=== PATIENT | female | born 1995 ===

== ENCOUNTER 2018-04-17 13:58 | Emergency (ER) | payer BC ==
[2018-04-17 14:10] VITALS: BP 122/67
--- NOTE | 2018-04-17 14:13 | UC ---
UC General HPI - HPI Summary HPI Summary: 23 yo female presents with fatigue and feeling cold extremities over the last few weeks. She tells me that she is studying for her MCATs and is under a lot of stress recently. Over the last 2 weeks she has noticed her hands and feet will feel cold, even though it is warm outside. Also has felt more tired and fatigued. She is sleeping well at night. Is eating and drinking as usual. Denies fever, SOB, chest pain, abdominal pain, n/v/d/c, dysuria, vaginal pain/ discharge, dizziness, or headache. No recent illness, weight loss/gain, or night sweats. No pain. She tells me that her mother is hypothyroid and is wonders if she has it as well. - History of Current Complaint Chief Complaint: UCGeneralIllness Stated Complaint: FATGIUE,CHILLS Time Seen by Provider: 04/17/18 14:08 Hx Obtained From: Patient Onset/Duration: Gradual Onset Current Severity: None - Allergy/Home Medications Allergies/Adverse Reactions: Allergies Allergy/AdvReac Type Severity Reaction Status Date / Time amoxicillin Allergy GI Upset Verified 04/17/18 14:10 Home Medications: Home Medications Desogestrel-Ethinyl Estradiol [Juleber 0.15-30 mg-Mcg] 1 tab PO 04/17/18 [ History] NK [No Home Medications Reported] 04/17/18 [History Confirmed 04/17/18] PMH/Surg Hx/FS Hx/Imm Hx - Additional Past Medical History Additional PMH: None Previously Healthy: Yes - Surgical History Surgical History: None - Family History Known Family History: Positive: Other - Hypothyroid - Social History Occupation: Student Lives: With Family Alcohol Use: Occasionally Substance Use Type: None Smoking Status (MU): Never Smoked Tobacco Review of Systems Constitutional: Fatigue Skin: Negative Respiratory: Negative Cardiovascular: Negative Gastrointestinal: Negative Genitourinary: Negative Neurovascular: Negative Neurological: Negative Psychological: Anxious All Other Systems Reviewed And Are Negative: Yes Physical Exam - Summary Physical Exam Summary: GENERAL: NAD. WDWN. Mildly anxious SKIN: No rashes, sores, lesions, or open wounds. HEENT: Head: AT/NC Eyes: EOM intact. Conjunctiva clear without inflammation or discharge. Ears: Hearing grossly normal. TMs intact, no bulging, erythema, or edema. Nose: Nasal mucosa pink and moist. NTTP maxillary and frontal sinus. Throat: Posterior oropharynx without exudates, erythema, or tonsillar enlargement. Uvula midline. NECK: Supple. Nontender. No lymphadenopathy. CHEST: CTAB. No r/r/w. No accessory muscle use. Breathing comfortably and in no distress. CV: RRR. Without m/r/g. Pulses intact. Brisk cap refill. ABDOMEN: Soft. NTTP. No distention or guarding. No organomegaly. No CVA tenderness. Bowel sounds present NEURO: Alert. CN II-XII grossly intact. PSYCH: Age appropriate behavior. Triage Information Reviewed: Yes Course/Dx - Course Course Of Treatment: Will draw for CBC, CMP, and TSH. I discussed with her that if her results are normal - she should follow up with her PCP for further investigation. If her results are ABNORMAL - she should follow up with her PCP for further eval/treatment. She has a PCP in [place] - Pt was agreeable to this. - Differential Dx - Multi-Symptom Provider Diagnoses: Fatigue Discharge - Sign-Out/Discharge Documenting (check all that apply): Discharge/Admit/Transfer - Discharge Plan Condition: Stable Disposition: HOME Referrals: No Primary Care Phys,NOPCP [Primary Care Provider] - Additional Instructions: If you develop a fever, shortness of breath, chest pain, new or worsening symptoms - please call your PCP or go to the ED. Please follow up with your primary doctor for your lab results when they return - Billing Disposition and Condition Condition: STABLE Disposition: Home
[2018-04-18 13:22] LABS: Hematocrit 39 % (35-47); Hemoglobin 12.6 g/dl (12.0-16.0); Mean Corpuscular HGB Conc 33 g/dl (31-36); Mean Corpuscular Hemoglobin 26 pg (27-31); Mean Corpuscular Volume 80 fL (80-97); Mean Platelet Volume 9.8 um3 (7.4-10.4); Platelet Count 218 10^3/ul (150-450); Red Blood Count 4.85 10^6/ul (4.00-5.40); Red Cell Distribution Width 15 % (10.5-15); White Blood Count 3.8 10^3/ul (3.5-10.8)
[2018-04-18 13:32] LABS: EGFR Non-African American 111.1 (>60)
[2018-04-18 13:41] LABS: ABS Basophils 0 10^3/ul (0-0.2); ABS Eosinophils 0.1 10^3/ul (0-0.6); ABS Lymphocytes 1.4 10^3/ul (1.0-4.8); ABS Monocytes 0.3 10^3/ul (0-0.8); ABS Nucleated RBC 0 10^3/ul; Eosinophil % 1.8 % (0-6); Lymphocyte % 36.9 % (25-47); Nucleated Red Blood Cells % 0.3
== END 2018-04-17 14:35 | disposition home or self-care (01) ==
LOC: UCEAST 13:58
DX: R53.83 Other fatigue (principal); R68.83 Chills (without fever); Z88.0 Allergy status to penicillin
CPT/HCPCS: 36415; 80053; 84443; 85025; 99201; G0463